=== PATIENT | male | born 1940 | race Caucasian/White ===

== ENCOUNTER 2019-04-26 10:03 | Inpatient (IN) ==
[2019-04-26] MEDS ORDERED: ONDANSETRON 4 MG/2 ML VIAL IV STA (10:30)
[2019-04-26] MEDS ORDERED: ALBUTEROL 2.5 MG/3 ML NEB RESP TX SCH (10:30)
[2019-04-26] MEDS ORDERED: SODIUM CHLORIDE 0.9% 1,000 ML IV STA (10:30)
[2019-04-26 10:54] LABS: Basophils # 0.1 10*3/uL (0.0-0.2); Basophils % 0.4 % (0.0-0.8); Eosinophils % 0.2 % (0.00-10.9); Hematocrit 40.8 VOL% (42.0-52.0); Hemoglobin 13.2 GM/DL (14.0-18.0); Immature Granulocytes % 0.9 %; Immature Granulocytes Absolute 0.14 #; Lymphocytes # 1.3 10*3/uL (1.4-4.0); Lymphocytes % 8.8 % (21.2-54.2); Mean Corpuscular HGB Conc 32.4 GM/DL (32-36); Mean Corpuscular Volume 91.3 FL (87-102); Mean Platelet Volume 12.2 FL (9.6-12.0); Monocytes % 11.9 % (1.7-12.7); Neutrophils % 77.8 % (38.7-73.9); Platelet Count 182 T/CUMM (130-400); Red Blood Count 4.47 MC/CUMM (3.8-5.5); Red Cell Distribution Width 13.2 % (9.3-17.3)
[2019-04-26 11:00] LABS: INR 1.1; PT Patient Result 11.8 SECS (9.6-12.2); Partial Thromboplastin Time 24.4 SECS (20.8-36.0)
[2019-04-26 11:07] LABS: Albumin 3.2 G/DL (3.4-5.0); Bilirubin,Total 1.4 MG/DL (0.2-1.0); Calcium 8.6 MG/DL (8.5-10.1); Osmolality,Calculated 273.1 MOS/KG (273-304); Total Protein 7.2 G/DL (6.4-8.3)
[2019-04-26 11:11] LABS: Hypochromasia 1+; Platelet Estimate Adequate
[2019-04-26] MEDS ORDERED: PIPERACILLIN/TAZOBACTAM 3,375 MG in SODIUM CHLORIDE 0.9% 100 ML IV STA (11:52)
[2019-04-26] MEDS ORDERED: methylPREDNISolone SOD SUC 125 MG/2 ML VIAL IV STA (11:55)
[2019-04-26] MEDS ORDERED: MORPHINE 4 MG/1 ML VIAL IV PRN (12:42)
[2019-04-26] MEDS ORDERED: tiZANidine 4 MG TABLET PO PRN (12:46)
[2019-04-26] MEDS ORDERED: DOCUSATE SODIUM 100 MG CAPSULE PO PRN (12:46)
[2019-04-26] MEDS: ALBUTEROL/IPRATROPIUM 3 ML NEB RESP TX SCH ×2 (13:00→19:17)
[2019-04-26] MEDS: FLUoxetine 20 MG CAPSULE PO SCH (15:06)
[2019-04-26] MEDS: CHOLECALCIFEROL 1,000 UNIT TABLET PO SCH (15:07)
[2019-04-26] MEDS: POTASSIUM GLUCONATE 500 MG TABLET PO SCH (15:08)
[2019-04-26] MEDS: PANTOPRAZOLE 40 MG TABLET PO SCH (15:08)
[2019-04-26] MEDS: ENOXAPARIN 40 MG/0.4 ML SYRINGE SUBCUT SCH (15:13)
[2019-04-26] MEDS: cefTRIAXone 1,000 MG in SYRINGE 1 EACH IV SCH (15:24)
[2019-04-26] MEDS: AZITHROMYCIN INJ 500 MG in SODIUM CHLORIDE 0.9% 250 ML IV SCH (15:26)
[2019-04-26] MEDS: methylPREDNISolone SOD SUC 40 MG/1 ML VIAL IV SCH (20:33)
[2019-04-26] MEDS: traZODone 50 MG TABLET PO SCH (20:36)
[2019-04-26] MEDS: QUEtiapine 100 MG TABLET PO SCH (20:37)
[2019-04-27] MEDS: ALBUTEROL/IPRATROPIUM 3 ML NEB RESP TX SCH ×4 (00:07→19:40)
[2019-04-27 01:02] LABS: Apearance,Urine CLEAR (Clear); Bilirubin,Urine Negative (Negative); Blood, Urine Negative (Negative); Glucose,Urine (UA) 150 mg/dL (Negative); Ketones,Urine Negative (Negative); Mucus,Urine Occasional /LPF (Occasional); Nitrite,Urine Negative (Negative); Protein,Urine Negative; RBC,Urine 5 /HPF (0-4); Urine Color Amber (Yellow); Urine Specific Gravity 1.018 (1.001-1.035); WBC,Urine 1 /HPF (0-6)
[2019-04-27 01:19] LABS: Barbiturates Screen,Urine Negative (Negative); Benzodiazepines Screen,Urine Negative (Negative); Cannabinoid Screen,Urine Negative (Negative); Opiate Screen,Urine Positive (Negative); Phencyclidine Screen,Urine Negative (Negative)
[2019-04-27] MEDS: methylPREDNISolone SOD SUC 40 MG/1 ML VIAL IV SCH ×3 (03:22→21:34)
[2019-04-27 05:05] LABS: Basophils % 0.1 % (0.0-0.8); Hematocrit 37.1 VOL% (42.0-52.0); Hemoglobin 12.2 GM/DL (14.0-18.0); Immature Granulocytes % 0.9 %; Immature Granulocytes Absolute 0.14 #; Lymphocytes # 0.9 10*3/uL (1.4-4.0); Lymphocytes % 5.6 % (21.2-54.2); Mean Corpuscular HGB Conc 32.9 GM/DL (32-36); Mean Corpuscular Volume 91.8 FL (87-102); Mean Platelet Volume 12.6 FL (9.6-12.0); Monocytes % 5.4 % (1.7-12.7); Platelet Count 167 T/CUMM (130-400); Red Blood Count 4.04 MC/CUMM (3.8-5.5); Red Cell Distribution Width 13.1 % (9.3-17.3); White Blood Count 15.1 T/CUMM (4-12)
[2019-04-27 05:29] LABS: Calcium 9.4 MG/DL (8.5-10.1); Osmolality,Calculated 279.2 MOS/KG (273-304); Risk Ratio 4.11; VLDL CHOLESTEROL 22.4 MG/DL
[2019-04-27] MEDS: CHOLECALCIFEROL 1,000 UNIT TABLET PO SCH (09:03)
[2019-04-27] MEDS: PANTOPRAZOLE 40 MG TABLET PO SCH (09:03)
[2019-04-27] MEDS: POTASSIUM GLUCONATE 500 MG TABLET PO SCH (09:06)
[2019-04-27] MEDS: FLUoxetine 20 MG CAPSULE PO SCH (09:06)
[2019-04-27] MEDS: cefTRIAXone 1,000 MG in SYRINGE 1 EACH IV SCH (14:41)
[2019-04-27] MEDS: ENOXAPARIN 40 MG/0.4 ML SYRINGE SUBCUT SCH (14:41)
[2019-04-27] MEDS: AZITHROMYCIN INJ 500 MG in SODIUM CHLORIDE 0.9% 250 ML IV SCH (14:42)
[2019-04-27] MEDS: traZODone 50 MG TABLET PO SCH (21:32)
[2019-04-27] MEDS: QUEtiapine 100 MG TABLET PO SCH (21:33)
[2019-04-28] MEDS: ALBUTEROL/IPRATROPIUM 3 ML NEB RESP TX SCH ×3 (00:43→13:49)
[2019-04-28] MEDS ORDERED: AZITHROMYCIN 250 MG TABLET PO SCH (09:00)
[2019-04-28] MEDS: methylPREDNISolone SOD SUC 40 MG/1 ML VIAL IV SCH (10:11)
[2019-04-28] MEDS: POTASSIUM GLUCONATE 500 MG TABLET PO SCH (10:13)
[2019-04-28] MEDS: CHOLECALCIFEROL 1,000 UNIT TABLET PO SCH (10:13)
[2019-04-28] MEDS: PANTOPRAZOLE 40 MG TABLET PO SCH (10:14)
[2019-04-28] MEDS: FLUoxetine 20 MG CAPSULE PO SCH (10:14)
[2019-04-28 12:37] VITALS: BP 108/46
[2019-04-28] MEDS: ENOXAPARIN 40 MG/0.4 ML SYRINGE SUBCUT SCH (13:43)
[2019-04-28] MEDS: cefTRIAXone 1,000 MG in SYRINGE 1 EACH IV SCH (13:47)
== END 2019-04-28 15:08 | disposition home health service (06) | DRG 177 ==
LOC: N.ED 10:03 → N.EDINP 12:59 → N.2W 13:55
PROVIDERS: ADMIT Family Medicine; ATTEND Family Medicine

== ENCOUNTER 2020-10-20 13:45 | Inpatient (IN) ==
[2020-10-20] MEDS ORDERED: DIPH/TET/ACEL PERT BOOSTER VACCINE 0.5 ML VIAL IM ONE (13:52)
[2020-10-20] MEDS ORDERED: ONDANSETRON 4 MG/2 ML VIAL IV STA (14:14)
[2020-10-20] MEDS ORDERED: MORPHINE 10 MG/1 ML VIAL IV STA (14:14)
[2020-10-20] MEDS ORDERED: MORPHINE 2 MG/1 ML SYRINGE ONE (14:18)
[2020-10-20 14:23] LABS: Basophils % 0.3 % (0.0-0.8); Eosinophils # 0.1 10*3/uL (0.0-0.87); Eosinophils % 0.6 % (0.00-10.9); Hematocrit 46.1 VOL% (42.0-52.0); Immature Granulocytes % 0.7 %; Immature Granulocytes Absolute 0.11 #; Lymphocytes # 1.4 10*3/uL (1.4-4.0); Lymphocytes % 8.9 % (21.2-54.2); Mean Corpuscular HGB Conc 32.5 GM/DL (32-36); Mean Corpuscular Volume 91.8 FL (87-102); Mean Platelet Volume 11.4 FL (9.6-12.0); Monocytes % 6.1 % (1.7-12.7); Neutrophils % 83.4 % (38.7-73.9); Platelet Count 264 T/CUMM (130-400); Red Blood Count 5.02 MC/CUMM (3.8-5.5); Red Cell Distribution Width 13.5 % (9.3-17.3); White Blood Count 15.8 T/CUMM (4-12)
[2020-10-20 14:35] LABS: PT Patient Result 11.3 SECS (10.5-12.0); Partial Thromboplastin Time 27.3 SECS (23.9-33.8)
[2020-10-20 14:42] LABS: Calcium 9.4 MG/DL (8.5-10.1); Osmolality,Calculated 280.3 MOS/KG (273-304); Potassium 3.8 MMOL/L (3.5-5.1)
[2020-10-20] MEDS ORDERED: GLUCAGON 1 MG VIAL IM PRN (15:20)
[2020-10-20] MEDS ORDERED: DEXTROSE 50% 25 GM/50 ML VIAL IV PRN (15:20)
[2020-10-20] MEDS: HYDROmorphone 2 MG/1 ML VIAL IV PRN ×2 (15:44→19:49)
[2020-10-20 16:30] LABS: Bilirubin,Urine Negative (Negative); Blood, Urine Negative (Negative); Glucose,Urine (UA) Negative (Negative); Hyaline Casts,Urine 1 /LPF (0-3); Ketones,Urine Negative (Negative); Mucus,Urine Occasional /LPF (Occasional); Nitrite,Urine Negative (Negative); Protein,Urine Negative; RBC,Urine 1 /HPF (0-4); Urine Appearance CLEAR (Clear); Urine Color Yellow (Yellow); Urine Specific Gravity 1.015 (1.001-1.035)
[2020-10-20] MEDS: ACETAMINOPHEN 325 MG TABLET PO PRN (18:35)
[2020-10-20] MEDS: ENOXAPARIN 40 MG/0.4 ML SYRINGE SUBCUT SCH (18:37)
[2020-10-20] MEDS: ONDANSETRON 4 MG/2 ML VIAL IV PRN (19:50)
[2020-10-20] MEDS: tiZANidine 4 MG TABLET PO PRN (21:34)
[2020-10-20] MEDS: QUEtiapine 100 MG TABLET PO SCH (21:35)
[2020-10-20] MEDS: traZODone 50 MG TABLET PO SCH (21:35)
[2020-10-21] MEDS: HYDROmorphone 2 MG/1 ML VIAL IV PRN ×3 (06:26→18:58)
[2020-10-21] MEDS: ONDANSETRON 4 MG/2 ML VIAL IV PRN (06:26)
[2020-10-21] MEDS ORDERED: propofoL 200 MG/20 ML VIAL IV ONE (06:51)
[2020-10-21] MEDS ORDERED: ROCURONIUM 50 MG/5 ML VIAL IV ONE (06:51)
[2020-10-21] MEDS ORDERED: SUCCINYLCHOLINE 200 MG/10 ML VIAL ONE (06:51)
[2020-10-21] MEDS ORDERED: ETOMIDATE 40 MG/20 ML VIAL IV ONE (06:51)
[2020-10-21] MEDS ORDERED: ACETAMINOPHEN INJ 1,000 MG/100 ML VIAL IV ONE (06:51)
[2020-10-21] MEDS ORDERED: LIDOCAINE 2% 5 ML VIAL ONE (06:51)
[2020-10-21] MEDS ORDERED: fentaNYL 250 MCG/5 ML VIAL ONE (06:51)
[2020-10-21] MEDS ORDERED: ONDANSETRON 4 MG/2 ML VIAL ONE (06:55)
[2020-10-21] MEDS ORDERED: TIZANIDINE 4 MG PO PRN (07:31)
[2020-10-21] MEDS ORDERED: ceFAZolin 1,000 MG VIAL ONE (08:12)
[2020-10-21] MEDS ORDERED: LACTATED RINGERS 1,000 ML IV ONE (08:44)
[2020-10-21] MEDS ORDERED: fentaNYL 100 MCG/2 ML VIAL ONE ×2 (08:44→08:58)
[2020-10-21] MEDS ORDERED: TRANEXAMIC ACID 1,000 MG/10 ML VIAL ONE (08:52)
[2020-10-21] MEDS ORDERED: PHENYLEPHRINE 1 MG/10 ML SYRINGE IV ONE (09:12)
[2020-10-21] MEDS: CHOLECALCIFEROL 1,000 UNIT TABLET PO SCH (11:13)
[2020-10-21] MEDS: POTASSIUM CHLORIDE 10 MEQ TABLET PO SCH (11:13)
[2020-10-21] MEDS: FLUoxetine 20 MG CAPSULE PO SCH (11:13)
[2020-10-21] MEDS: PANTOPRAZOLE 40 MG TABLET PO SCH (11:13)
[2020-10-21] MEDS: ENOXAPARIN 40 MG/0.4 ML SYRINGE SUBCUT SCH (17:31)
[2020-10-21] MEDS: QUEtiapine 100 MG TABLET PO SCH (20:36)
[2020-10-21] MEDS: ACETAMINOPHEN 325 MG TABLET PO PRN (20:36)
[2020-10-21] MEDS: tiZANidine 4 MG TABLET PO PRN (20:37)
[2020-10-21] MEDS: traZODone 50 MG TABLET PO SCH (20:37)
[2020-10-21] MEDS ORDERED: TRAZODONE 100 MG PO SCH (21:00)
[2020-10-21] MEDS ORDERED: QUETIAPINE 300 MG PO SCH (21:00)
[2020-10-22] MEDS ORDERED: SODIUM CHLORIDE 0.9% 500 ML IV ONE (07:55)
[2020-10-22] MEDS: POTASSIUM CHLORIDE 10 MEQ TABLET PO SCH (09:34)
[2020-10-22] MEDS: FLUoxetine 20 MG CAPSULE PO SCH (09:35)
[2020-10-22] MEDS: CHOLECALCIFEROL 1,000 UNIT TABLET PO SCH (09:35)
[2020-10-22] MEDS: PANTOPRAZOLE 40 MG TABLET PO SCH (09:35)
[2020-10-22] MEDS: MIDODRINE 2.5 MG TABLET PO SCH ×3 (09:39→21:18)
[2020-10-22] MEDS: SODIUM CHLORIDE 0.9% 1,000 ML IV SCH (10:24)
[2020-10-22] MEDS: ENOXAPARIN 40 MG/0.4 ML SYRINGE SUBCUT SCH (15:53)
[2020-10-22] MEDS: HYDROmorphone 2 MG/1 ML VIAL IV PRN (18:18)
[2020-10-22] MEDS: POLYETHYLENE GLYCOL POWDER 17 GM PACK PO SCH (21:16)
[2020-10-22] MEDS: DOCUSATE SODIUM 100 MG CAPSULE PO SCH (21:17)
[2020-10-22] MEDS: tiZANidine 4 MG TABLET PO PRN (21:17)
[2020-10-22] MEDS: LUBIPROSTONE 8 MCG CAPSULE PO SCH (21:17)
[2020-10-22] MEDS: traZODone 50 MG TABLET PO SCH (21:17)
[2020-10-22] MEDS: QUEtiapine 100 MG TABLET PO SCH (21:17)
[2020-10-23] MEDS: SODIUM CHLORIDE 0.9% 1,000 ML IV SCH ×2 (00:53→09:00)
[2020-10-23 04:53] LABS: Basophils % 0.3 % (0.0-0.8); Eosinophils # 0.6 10*3/uL (0.0-0.87); Eosinophils % 4.9 % (0.00-10.9); Hematocrit 32.6 VOL% (42.0-52.0); Hemoglobin 10.3 GM/DL (14.0-18.0); Immature Granulocytes % 0.6 %; Immature Granulocytes Absolute 0.07 #; Lymphocytes # 1.4 10*3/uL (1.4-4.0); Lymphocytes % 11.8 % (21.2-54.2); Mean Corpuscular HGB Conc 31.6 GM/DL (32-36); Mean Corpuscular Volume 93.1 FL (87-102); Mean Platelet Volume 11.4 FL (9.6-12.0); Monocytes % 9.9 % (1.7-12.7); Neutrophils % 72.5 % (38.7-73.9); Platelet Count 145 T/CUMM (130-400); Red Cell Distribution Width 13.4 % (9.3-17.3); White Blood Count 11.7 T/CUMM (4-12)
[2020-10-23 05:10] LABS: Calcium 7.9 MG/DL (8.5-10.1); Osmolality,Calculated 278.7 MOS/KG (273-304)
[2020-10-23] MEDS ORDERED: METHYLNALTREXONE 12 MG/0.6 ML VIAL SUBCUT ONE (09:00)
[2020-10-23] MEDS: LUBIPROSTONE 8 MCG CAPSULE PO SCH (09:18)
[2020-10-23] MEDS: MIDODRINE 2.5 MG TABLET PO SCH ×3 (09:19→20:59)
[2020-10-23] MEDS: POLYETHYLENE GLYCOL POWDER 17 GM PACK PO SCH ×2 (09:19→20:58)
[2020-10-23] MEDS: PANTOPRAZOLE 40 MG TABLET PO SCH (09:19)
[2020-10-23] MEDS: DOCUSATE SODIUM 100 MG CAPSULE PO SCH ×2 (09:19→20:58)
[2020-10-23] MEDS: POTASSIUM CHLORIDE 10 MEQ TABLET PO SCH (09:19)
[2020-10-23] MEDS: CHOLECALCIFEROL 1,000 UNIT TABLET PO SCH (09:20)
[2020-10-23] MEDS: FLUoxetine 20 MG CAPSULE PO SCH (09:20)
[2020-10-23] MEDS: LINACLOTIDE 145 MCG CAPSULE PO SCH (09:24)
[2020-10-23] MEDS: ENOXAPARIN 40 MG/0.4 ML SYRINGE SUBCUT SCH (15:53)
[2020-10-23] MEDS: QUEtiapine 100 MG TABLET PO SCH (20:58)
[2020-10-23] MEDS: LUBIPROSTONE 24 MCG CAPSULE PO SCH (20:58)
[2020-10-23] MEDS: tiZANidine 4 MG TABLET PO PRN (20:59)
[2020-10-23] MEDS: traZODone 50 MG TABLET PO SCH (20:59)
[2020-10-23] MEDS: MENTHOL/ZINC OXIDE OINT 71 GM JAR TOP SCH (20:59)
[2020-10-24 05:53] LABS: Basophils % 0.4 % (0.0-0.8); Eosinophils # 0.7 10*3/uL (0.0-0.87); Eosinophils % 8.2 % (0.00-10.9); Hematocrit 30.8 VOL% (42.0-52.0); Hemoglobin 9.9 GM/DL (14.0-18.0); Immature Granulocytes % 0.9 %; Immature Granulocytes Absolute 0.08 #; Lymphocytes # 1.4 10*3/uL (1.4-4.0); Lymphocytes % 15.2 % (21.2-54.2); Mean Corpuscular HGB Conc 32.1 GM/DL (32-36); Mean Corpuscular Volume 93.6 FL (87-102); Mean Platelet Volume 12.5 FL (9.6-12.0); Monocytes % 10.7 % (1.7-12.7); Neutrophils % 64.6 % (38.7-73.9); Platelet Count 156 T/CUMM (130-400); Red Blood Count 3.29 MC/CUMM (3.8-5.5); Red Cell Distribution Width 13.2 % (9.3-17.3)
[2020-10-24 06:17] LABS: Vitamin B12 565 PG/ML (211-911)
[2020-10-24 06:19] LABS: % Iron Saturation 13.1 % (18-50)
[2020-10-24 06:23] LABS: Calcium 8.6 MG/DL (8.5-10.1); Osmolality,Calculated 273.7 MOS/KG (273-304); Potassium 3.9 MMOL/L (3.5-5.1)
[2020-10-24 07:25] LABS: Sedimentation Rate-Westergren 108 MM/HR (0-20)
[2020-10-24] MEDS: LINACLOTIDE 145 MCG CAPSULE PO SCH (08:59)
[2020-10-24] MEDS: LUBIPROSTONE 24 MCG CAPSULE PO SCH (08:59)
[2020-10-24] MEDS: DOCUSATE SODIUM 100 MG CAPSULE PO SCH (09:00)
[2020-10-24] MEDS: POLYETHYLENE GLYCOL POWDER 17 GM PACK PO SCH (09:00)
[2020-10-24] MEDS: PANTOPRAZOLE 40 MG TABLET PO SCH (09:00)
[2020-10-24] MEDS: MIDODRINE 2.5 MG TABLET PO SCH (09:00)
[2020-10-24] MEDS: FLUoxetine 20 MG CAPSULE PO SCH (09:00)
[2020-10-24] MEDS: CHOLECALCIFEROL 1,000 UNIT TABLET PO SCH (09:00)
[2020-10-24] MEDS: POTASSIUM CHLORIDE 10 MEQ TABLET PO SCH (09:00)
[2020-10-24] MEDS ORDERED: SODIUM PHOSPHATE ENEMA 133 ML BOTTLE RECTAL ONE (11:00)
[2020-10-24 11:32] VITALS: BP 126/71
[2020-10-24 11:44] LABS: Hemoglobin A1 (Alkaline) 97.6 % (96.5-98.5); Hemoglobin A2 (Alkaline) 2.4 % (1.5-3.5)
[2020-10-24] MEDS: MENTHOL/ZINC OXIDE OINT 71 GM JAR TOP SCH (13:02)
[2020-10-24] MEDS ORDERED: SENNA 8.6 MG TABLET PO SCH (21:00)
[2020-10-25 19:36] LABS: Soluble Transf Receptor (sTfR) 2.7 mg/L (1.8 - 4.6)
== END 2020-10-24 13:44 | disposition swing bed (61) | DRG 522 ==
LOC: EDBD → EDUNIT# → N.ED 13:45 → SUATTDRO 15:20 → N.EDINP 15:20 → N.3E 15:20 → N.ED 17:09
PROVIDERS: ADMIT Emergency Medicine; ATTEND Hospitalist